=== PATIENT | female | born 1995 | race Caucasian/White ===

== ENCOUNTER 2018-08-29 13:35 | Inpatient (IN) ==
[2018-08-29] MEDS ORDERED: Sod Chloride 0.9% Inj 1,000 ML IV.SIG ONE (14:11)
[2018-08-29] MEDS ORDERED: Morphine Inj 4 MG/ML Vial IV.PUSH ONE (14:11)
--- NOTE | 2018-08-29 14:21 | ED ---
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 Patient was told by her PHARMACY TECH CUSTOMER SERVICE, Dr. Wetzel that she had a 10 cm ovarian cyst on the right side. Reports that she was at that time and was told that she would need surgery for her ovarian cysts 6 months after she delivered her baby. Patient reports that she delivered her baby in April and was going to follow- up in 6 months for her right-sided ovarian cysts but reports that over the past few days, she is been having severe right lower quadrant abdominal pain. Patient reports that she was seen at outside [facility] on August 27, 2018, at that time, she had a CT of her abdomen pelvis with IV contrast which showed a large ovarian cyst measuring approximately 10.1 cm in size. The appendix was normal. She also had a pelvic ultrasound which showed right ovarian enlargement especially with cysts with the largest cyst being 9.6 cm in size. There is no Doppler evidence of ovarian torsion found. Patient reports that she returned to the hospital on August 29 as she continued to have severe right lower quadrant abdominal pain. Patient then had another pelvic ultrasound which showed this 9.7 cm complex cyst in the right ovary. Patient was given a prescription for narcotic pain medications and was told to follow- up with her PHARMACY TECH CUSTOMER SERVICE. Reports that given the size of this ovarian cyst, she was told that she would need to be admitted to the hospital but for some reason was discharged. That same night, she went to [facility] for evaluation and she was just treated for pain control and was told to follow-up with her PHARMACY TECH CUSTOMER SERVICE. Patient reports that she is running out of her Percocets, reports severe right lower quadrant pain. Patient reports that at times, pain would be so severe, she would pass out from the pain. In addition to this, patient reports that she did not realize she did not have medical insurance and no one will see her or operate her unless she has garcia to pay upfront. MD complaint: Reports abdominal pain Onset (ago): day(s) Pain Consistency: constant Location: Reports RLQ Severity: severe Severity scale (1-10): 9 Quality: Reports stabbing and sharp Radiation: Reports RLQ Migration to: Reports no migration Relieving factors: nothing Exacerbating factors: nothing Associated symptoms: Reports denies other symptoms Related Data Previous Rx's Medication Instructions Recorded ibuprofen 600 mg PO QID #90 tab 08/27/18 Allergies Allergy/AdvReac Type Severity Reaction Status Date / Time No Known Allergies Allergy Verified 08/27/18 22:24 Review of Systems ROS: all other systems reviewed are negative [facility] Medical History Medical History Patient denies medical problems (Acute) Surgical History Surgical History No history of previous surgery (Acute) Social History Social History Substance History: No History of Abuse Smoking Status: Never smoker How Often Do You Have a Drink Containing Alcohol: Monthly or less Recent Travel in [facility] within the Last 8 Weeks: No Recent Out of Country Travel within the Last 8 Weeks: No Immunization History Tetanus Immunization: Never Vaccinated Exam Narrative Exam Narrative: GENERAL: Moderate distress, patient is uncomfortable SKIN: Focused skin assessment warm/dry. HEAD: Atraumatic. Normocephalic. EYES: Pupils equal and round. No scleral icterus. No injection or drainage. ENT: No nasal bleeding or discharge. Mucous membranes pink and moist. NECK: Trachea midline. No JVD. CARDIOVASCULAR: Regular rate and rhythm. No murmur appreciated. RESPIRATORY: No accessory muscle use. Clear to auscultation. Breath sounds equal bilaterally. GASTROINTESTINAL: Abdomen soft, tenderness to RLQ, nondistended. Hepatic and splenic margins not palpable. MUSCULOSKELETAL: No obvious deformities. No clubbing. No cyanosis. No edema. GENITOURINARY: Normal external genitalia without lesions or erythema. Vaginal vault with blood, no drainage. Cervical os was closed without drainage. No cervical motion tenderness. Uterus nontender and nonenlarged. Left adnexa nontender without masses. Right adnexa was tender and enlarged. NEUROLOGICAL: Awake and alert. No obvious cranial nerve deficits. Motor grossly within normal limits. Normal speech. PSYCHIATRIC: Appropriate mood and affect; insight and judgment normal. Course Initial Documented Vital Signs Temperature 98.3 F 08/29/18 13:45 Pulse Rate 66 08/29/18 13:45 Respiratory Rate 16 08/29/18 13:45 Blood Pressure 164/91 H 08/29/18 13:45 Pulse Oximetry 100 08/29/18 13:45 Last Documented Vital Signs Temperature 98.1 F 08/29/18 16:58 Pulse Rate 57 L 08/29/18 16:58 Respiratory Rate 17 08/29/18 16:58 Blood Pressure 123/77 08/29/18 16:58 Pulse Oximetry 100 08/29/18 16:58 Medical Decision Making MDM Narrative Medical decision making narrative: During the course of the patients emergency department visit, the patients history, examination, and differential diagnosis were reviewed with the patient. The patient was placed on a registered nurse cardiac telemetry with oximetry and frequent blood pressure monitoring. The patient had an IV access obtained and blood work sent for analysis. The patient was initially provided IVF as well as IV morphine for pain control Patient will require pelvic exam, a pelvic ultrasound was ordered to evaluate for possible ovarian torsion. Ultimately, plan to call the OB hospitalist as I am concerned that patient is having intermittent ovarian torsion due to the size of this ovarian cyst. A CT of the abdomen pelvis was then ordered as she just recently had a CT with IV and p.o. contrast to rule appendicitis, there is no evidence of appendicitis at that time, she presents with similar pain. Patient with a 10 cm right-sided ovarian cyst, I am concerned for intermittent ovarian torsion, call made to OB to review case. She has been at multiple hospitals for similar pain, I do think that patient will require admission to the hospital for further treatment of this ovarian cyst. Discussed clinical findings with Dr. Pacheco who states she will come to the ED to evaluate patient. Pt has been resting with her parents at bedside. Pain currently controlled. Dr. Pacheco evaluated patient. Pt will be admitted to her service. Plan is to go to the OR in the morning. Admit orders placed. Medical Screen Exam Complete: Yes Emergency Medical Condition: Yes Differential Diagnosis Differential Diagnosis: Ovarian cyst, ovarian torsion, appendicitis Lab Data Lab results reviewed: Yes I reviewed the patient's lab results. Result diagrams: 08/29/18 14:18 08/29/18 14:18 POC Results POC Urine Results Negative Lab Results 08/29/18 08/29/18 08/29/18 Range/Units 14:18 14:18 14:52 WBC 8.9 (4.0-11.0) th/mm3 RBC 3.65 L (4.00-5.30) mil/mm3 Hgb 10.1 L (11.6-15.3) gm/dL Hct 30.6 L (35.0-46.0) % MCV 83.9 (80.0-100.0) fL MCH 27.7 (27.0-34.0) pg MCHC 33.1 (32.0-36.0) % RDW 15.2 (11.6-17.2) % Plt Count 336 (150-450) th/mm3 MPV 7.3 (7.0-11.0) fL Neut % (Auto) 58.7 (16.0-70.0) % Lymph % (Auto) 34.6 (9.0-44.0) % Leake % (Auto) 5.5 (0.0-8.0) % Eos % (Auto) 0.7 (0.0-4.0) % Baso % (Auto) 0.5 (0.0-2.0) % Neut # (Auto) 5.2 (1.8-7.7) th/mm3 Lymph # (Auto) 3.1 (1.0-4.8) th/mm3 Leake # (Auto) 0.5 (0.0-0.9) th/mm3 Eos # (Auto) 0.1 (0.0-0.4) th/mm3 Baso # (Auto) 0.0 (0.0-0.2) th/mm3 WBC Differential . Differential Comment Auto diff final Sodium 141 (136-145) meq/L Potassium 3.4 L (3.5-5.1) meq/L Chloride 109 H (98-107) meq/L Carbon Dioxide 25.9 (21.0-32.0) meq/L Anion Gap 6 (5-15) meq/L BUN 15 (7-18) mg/dL Creatinine 0.99 (0.50-1.00) mg/dL Estimated GFR 68 L (>89) mL/min Random Glucose 120 H (74-106) mg/dL Calcium 8.2 L (8.5-10.1) mg/dL Total Bilirubin 0.4 (0.2-1.0) mg/dL AST 14 L (15-37) U/L ALT 33 (10-53) U/L Alkaline Phosphatase 73 (45-117) U/L Total Protein 7.2 (6.4-8.2) g/dL Albumin 3.7 (3.4-5.0) g/dL Urine Color Yellow (Yellw/Straw) Urine Clarity Hazy H (Clear) Urine pH 5.0 (5.0-8.5) Ur Specific [place] 1.030 (1.002-1.035) Urine Protein 30 H (Neg-Trace) mg/dL Urine Glucose (UA) Negative (Negative) mg/dL Urine Ketones Negative (Negative) mg/dL Urine Occult Blood Moderate H (Negative) Urine Nitrate Negative (Negative) Urine Bilirubin Negative (Negative) Urine Urobilinogen Less than 2 (Less than 2) mg/dL Ur Leukocyte Esterase Negative (Negative) Urine RBC 4 H (0-3) /hpf Urine WBC 2 (0-5) /hpf Ur Squamous Epith Cells 2 (0-5) /hpf Calcium Oxalate Crystal Occasional H (None) /hpf Urine Mucus Moderate H (Occasional) /lpf Micro UA Comment Culture not ind Ur Microscopic Review Not Reportable Urine Culture Comments Culture not ind Clue Cells (Wet Prep) (None Seen) Trichomonas (Wet Prep) (None Seen) Yeast (Wet Prep) (None Seen) Chlam trachomat DNA PCR (Not Detect) N.gonorrhoeae DNA (PCR) (Not Detect) 08/29/18 08/29/18 Range/Units 15:04 15:14 WBC (4.0-11.0) th/mm3 RBC (4.00-5.30) mil/mm3 Hgb (11.6-15.3) gm/dL Hct (35.0-46.0) % MCV (80.0-100.0) fL MCH (27.0-34.0) pg MCHC (32.0-36.0) % RDW (11.6-17.2) % Plt Count (150-450) th/mm3 MPV (7.0-11.0) fL Neut % (Auto) (16.0-70.0) % Lymph % (Auto) (9.0-44.0) % Leake % (Auto) (0.0-8.0) % Eos % (Auto) (0.0-4.0) % Baso % (Auto) (0.0-2.0) % Neut # (Auto) (1.8-7.7) th/mm3 Lymph # (Auto) (1.0-4.8) th/mm3 Leake # (Auto) (0.0-0.9) th/mm3 Eos # (Auto) (0.0-0.4) th/mm3 Baso # (Auto) (0.0-0.2) th/mm3 WBC Differential Differential Comment Sodium (136-145) meq/L Potassium (3.5-5.1) meq/L Chloride (98-107) meq/L Carbon Dioxide (21.0-32.0) meq/L Anion Gap (5-15) meq/L BUN (7-18) mg/dL Creatinine (0.50-1.00) mg/dL Estimated GFR (>89) mL/min Random Glucose (74-106) mg/dL Calcium (8.5-10.1) mg/dL Total Bilirubin (0.2-1.0) mg/dL AST (15-37) U/L ALT (10-53) U/L Alkaline Phosphatase (45-117) U/L Total Protein (6.4-8.2) g/dL Albumin (3.4-5.0) g/dL Urine Color (Yellw/Straw) Urine Clarity (Clear) Urine pH (5.0-8.5) Ur Specific [place] (1.002-1.035) Urine Protein (Neg-Trace) mg/dL Urine Glucose (UA) (Negative) mg/dL Urine Ketones (Negative) mg/dL Urine Occult Blood (Negative) Urine Nitrate (Negative) Urine Bilirubin (Negative) Urine Urobilinogen (Less than 2) mg/dL Ur Leukocyte Esterase (Negative) Urine RBC (0-3) /hpf Urine WBC (0-5) /hpf Ur Squamous Epith Cells (0-5) /hpf Calcium Oxalate Crystal (None) /hpf Urine Mucus (Occasional) /lpf Micro UA Comment Ur Microscopic Review Urine Culture Comments Clue Cells (Wet Prep) Present H (None Seen) Trichomonas (Wet Prep) None seen (None Seen) Yeast (Wet Prep) None seen (None Seen) Chlam trachomat DNA PCR Not detected (Not Detect) N.gonorrhoeae DNA (PCR) Not detected (Not Detect) Imaging Data Attestation: I personally reviewed and interpreted this imaging study as follows : Radiologist's impression: Pelvis Ultrasound 08/29/18 14:11 CONCLUSION: 1. 10 cm right ovarian cyst. 2. Otherwise negative. Discharge Plan Discharge Disposition Patient Disposition: ED Admit(ED Internal Use Only) Discharge Condition Condition: Stable Discharge Order Discharge Orders: ED Use Only Admit Order (Routine); Ordered 08/29/18 Ordered By: Danielle Narayan Discharge Details Diagnosis: BV (bacterial vaginosis), Ovarian cyst Physicians Team ED Provider: Otilia Baca ED Midlevel Provider: Danielle Narayan Primary Care Provider: Primary Care Hollyi,Steph Rxs /Orders / Referrals /Forms Prescriptions: No Action ibuprofen 600 mg tablet 600 mg PO QID Qty: 90 RF: 0 Status ED Status: Admitted Patient
[2018-08-29 14:28] LABS: Baso % (Auto) 0.5 % (0.0-2.0); Eos # (Auto) 0.1 th/mm3 (0.0-0.4); Eos % (Auto) 0.7 % (0.0-4.0); Hematocrit 30.6 % (35.0-46.0); Hemoglobin 10.1 gm/dL (11.6-15.3); Lymph # (Auto) 3.1 th/mm3 (1.0-4.8); Lymph % (Auto) 34.6 % (9.0-44.0); Mean Corpuscular HGB Conc 33.1 % (32.0-36.0); Mean Corpuscular Hemoglobin 27.7 pg (27.0-34.0); Mean Corpuscular Volume 83.9 fL (80.0-100.0); Mean Platelet Volume 7.3 fL (7.0-11.0); Mono # (Auto) 0.5 th/mm3 (0.0-0.9); Mono % (Auto) 5.5 % (0.0-8.0); Neut # (Auto) 5.2 th/mm3 (1.8-7.7); Neut % (Auto) 58.7 % (16.0-70.0); Platelet Count 336 th/mm3 (150-450); Red Blood Count 3.65 mil/mm3 (4.00-5.30); Red Cell Distribution Width 15.2 % (11.6-17.2); White Blood Count 8.9 th/mm3 (4.0-11.0)
[2018-08-29 14:48] LABS: Alanine Aminotransferase 33 U/L (10-53); Albumin 3.7 g/dL (3.4-5.0); Anion Gap 6 meq/L (5-15); Aspartate Aminotransferase 14 U/L (15-37); Blood Urea Nitrogen 15 mg/dL (7-18); Calcium 8.2 mg/dL (8.5-10.1); Carbon Dioxide 25.9 meq/L (21.0-32.0); Chloride 109 meq/L (98-107); Glomerular Filtration Rate 68 mL/min (>89); Glucose,Random 120 mg/dL (74-106); Potassium 3.4 meq/L (3.5-5.1); Sodium 141 meq/L (136-145)
[2018-08-29 14:50] LABS: Alkaline Phosphatase 73 U/L (45-117); Total Protein 7.2 g/dL (6.4-8.2)
[2018-08-29 15:33] LABS: Bilirubin,Urine Negative (Negative); Calcium Oxalate Crystals,Urine Occasional /hpf; Clarity,Urine Hazy (Clear); Color,Urine Yellow (Yellw/Straw); Glucose,Urine (UA) Negative (Negative); Leukocyte Esterase,Urine Negative (Negative); Mucus,Urine Moderate /lpf (Occasional); Nitrite,Urine Negative (Negative); Squamous Epithelial Cell,Urine 2 /hpf (0-5)
--- NOTE | 2018-08-29 15:49 | US ---
EXAM DATE: 08/29/2018 3:41 PM EST AGE/SEX: 23 years / Female INDICATIONS: Pelvic pain. CLINICAL DATA: This is the patient's initial encounter. Patient reports that signs and symptoms have been present for 1 week and indicates a pain score of 5/10. MEDICAL/SURGICAL HISTORY: . Pelvic pain. None. COMPARISON: No prior exams available for comparison. MEASUREMENTS: Uterus:__8.6 x 5.3 x 5.3 cm Endometrial Stripe:__5 mm Right Ovary:__ 10.1 x 8.8 x 6.9 cm Left Ovary:__ 2.8 x 1.9 x 1.9 cm FINDINGS: Uterus: The myometrium has homogeneous echotexture without mass. Endometrial Stripe: The endometrial stripe displays homogeneous echotexture. Right Ovary: 9.4 x 10.1 x 8.2 cm right ovarian cyst Left Ovary: Ovary contains no mass or significant cystic lesion. Fluid: No free fluid. Other: None CONCLUSION: 1. 10 cm right ovarian cyst. 2. Otherwise negative. Electronically signed by: Haresh Pickard MD Board Certified Radiologist 08/29/2018 3:48 PM EST
[2018-08-29] MEDS ORDERED: metroNIDAZOLE 500 MG Tablet PO ONE (18:37)
--- NOTE | 2018-08-29 18:50 | P.HPOB ---
History of Present Illness Reason for admission: pelvic pain, pelvic mass Planned procedure: other (right ovarian cystectomy for persistent 10cm cyst that is now causing acute pain) Narrative: Hina Rey is a 23 year old female Review of Systems All other systems reviewed negative except as stated in HPI PMFSH - History History Provided By: Patient - Medical History Medical History: Medical History (Last Reviewed 08/29/18 @ 14:19 by Otilia Baca) Patient denies medical problems - Surgical History Surgical History: Surgical History (Last Reviewed 08/29/18 @ 14:19 by Otilia Baca) No history of previous surgery - Tobacco History Smoking Status: Never smoker - Alcohol History How Often Do You Have a Drink Containing Alcohol: Monthly or less - Substance Use History Substance History: No History of Abuse - Travel History Recent Travel in the [place] Within the Last 8 Weeks: No Recent Travel Out of the Country Within the Last 8 Weeks: No - Immunization History Tetanus Immunization: Never Vaccinated Medications and Allergies Active Medications: Active Medications Sodium Chloride (Ns Flush) 2 ml IV.FLUSH PRN PRN PRN Reason: FLUSH AFTER USING IV ACCESS Allergies Allergy/AdvReac Type Severity Reaction Status Date / Time No Known Allergies Allergy Verified 08/27/18 22:24 Physical Exam Vital signs: Temp Pulse Resp BP Pulse Ox 98.1 F 57 L 17 123/77 100 08/29/18 16:58 08/29/18 16:58 08/29/18 16:58 08/29/18 16:58 08/29/18 16:58 Narrative: H & P dicatated Results - Labs CBC & Chem 7: 08/29/18 14:18 08/29/18 14:18 Labs: Short CBC 08/29/18 Range/Units 14:18 WBC 8.9 (4.0-11.0) th/mm3 Hgb 10.1 L (11.6-15.3) gm/dL Hct 30.6 L (35.0-46.0) % Plt Count 336 (150-450) th/mm3 BMP 08/29/18 14:18 Sodium 141 Potassium 3.4 L Chloride 109 H Carbon Dioxide 25.9 BUN 15 Creatinine 0.99 Calcium 8.2 L Liver Function 08/29/18 Range/Units 14:18 Total Bilirubin 0.4 (0.2-1.0) mg/dL AST 14 L (15-37) U/L ALT 33 (10-53) U/L Alkaline Phosphatase 73 (45-117) U/L Albumin 3.7 (3.4-5.0) g/dL Urine 08/29/18 Range/Units 14:52 Urine Color Yellow (Yellw/Straw) Urine Clarity Hazy H (Clear) Urine pH 5.0 (5.0-8.5) Ur Specific [place] 1.030 (1.002-1.035) Urine Protein 30 H (Neg-Trace) mg/dL Urine Glucose (UA) Negative (Negative) mg/dL - Imaging Impressions Pelvis Ultrasound 08/29/18 14:11 CONCLUSION: 1. 10 cm right ovarian cyst. 2. Otherwise negative. Assessment and Plan - Assessment (1) Acute pain in female pelvis Code(s): R10.2 - Pelvic and perineal pain Status: Acute (2) Ovarian cyst Code(s): N83.209 - Unspecified ovarian cyst, unspecified side Status: Acute Qualifiers: Laterality: right Qualified Code(s): N83.201 - Unspecified ovarian cyst, right side - Plan differential is right ovarian cyst vs paratubal cyst malignancy or abcess unlikely cyst is probably torsing intermittently Will perfrom Lscope in am and assess and remove cyst. risks and benefits reviewed with patient and parents in detail. Code Status: full code Discharge Planning: plan to discharge same day
--- NOTE | 2018-08-29 19:32 | MH ---
cc: Sara Pulido MD DATE OF ADMISSION: 08/29/2018 DATE OF PROCEDURE: 08/30/2018. SCHEDULED PROCEDURE: Diagnostic laparoscopy, right ovarian cystectomy, possible right oophorectomy with associated procedures. INDICATION: Acute pelvic pain secondary to a chronic 10 cm right ovarian cyst. HISTORY OF PRESENT CONDITION: The patient is a 23-year-old, single white female, 2, para 2, with LMP 2 days ago, who came to the emergency room after having been seen in [place] and at the [place] [facility] for pelvic pain. She said it started on Wednesday and was 10/10. She says it has been essentially 10/10 since Wednesday, for 72 hours. Right now with pain medicine, she says it is 6/10. She has no fever or chills. She did have an episode of nausea and vomiting, and her mom says that she passed out from the pain at home. She is moving her bowels and bladder. She has been eating intermittently. The last time she ate was 4 hours ago and she is hungry right now. She has had an ultrasound here which reveals a simple cyst on the right ovary of 10 cm. It did not appear to be torsed at the time of the ovarian ultrasound. It is simple without excrescences. There is no fluid in the cul-de-sac. The uterus and the other adnexa are unremarkable. PHYSICAL EXAMINATION: GENERAL: She is not in acute distress at this moment. VITAL SIGNS: She is afebrile and her vital signs are stable. She is neither hypertensive nor tachycardic. BACK: She has no CVA tenderness. ABDOMEN: She has good bowel sounds. No hepatosplenomegaly. No fluid wave. No palpable masses on exam. I am able to palpate the abdomen in all 4 quadrants without guarding, rebound or pain with percussion. PELVIC: At this point was deferred given the ultrasound. EXTREMITIES: Unremarkable. LUNGS: Clear. HEART: Regular. PAST MEDICAL HISTORY: She has no chronic or systemic illnesses. SOCIAL HISTORY: She does not smoke, drink or use illicit drugs. OBSTETRICAL HISTORY: Positive in that she has had 2 children, 4 months old and 2 years old, both vaginally. Her form of contraception right now is condoms and her beta hCG is negative. She denies any STDs. She apparently during her last was seen by Dr. Barajas at [place], who had sent her to Dr. Aj for what is believed to be the same persistent ovarian cyst on the right side to make sure it was not malignant. It was determined it was not malignant and watched during her . The plan had been to address it in the period, but that had not yet occurred. It was asymptomatic until Wednesday when she began having pain. LABORATORY DATA: Her white count is normal. She has a hemoglobin, I believe, of 11 or so. IMPRESSION: Right ovarian cyst, simple in nature, possibly a paratubal cyst, unlikely to be any type of malignancy or infection, probably torsing intermittently. This has been reviewed with Hina and her parents. I feel that it does need to be addressed and we have an OR time for 5:30 in the morning. She is hungry at this time and I do not mind giving her something to eat and then making her n.p.o. afterwards. She will get preoperative Ancef 2 grams. A Silver will be placed in the operating room. We will have her sign consents for a diagnostic laparoscopy, as discussed above, and we will proceed in the morning. MD LIBBY Hansen/aris , 06:45 PM , 06:55 PM
[2018-08-30] MEDS ORDERED: Metoprolol Tartrate 25 MG Tablet PO ONE (01:16)
[2018-08-30] MEDS ORDERED: Chlorhexidine Gluconate 2% 1 Pack (2 Cloths) TOPICAL ONE (01:16)
[2018-08-30] MEDS ORDERED: Sodium Chlor 0.9% Inj 500 ML IV.SIG SCH (02:00)
[2018-08-30] MEDS ORDERED: ceFAZolin 2 GM Premix Inj 2 GM/50 ML PIGGYBACK IV.SIG PRN (04:30)
[2018-08-30] MEDS ORDERED: Bupivacaine/Epinephrine Inj 0.25% 50 ML Vial ONE (05:57)
[2018-08-30] MEDS ORDERED: *Meperidine Inj 25 MG/ML Vial PERIprocedural Use ONLY ONE (06:55)
--- NOTE | 2018-08-30 06:57 | P.OP ---
- Preoperative Diagnosis (1) Ovarian cyst - Postoperative Diagnosis (1) Torsion of right ovary and ovarian pedicle Date of procedure: 08/30/18 Procedure: right ovarian cystectomy release of torsion Anesthesia: GETA Surgeon: Sara Pulido MD Estimated blood loss (mL): 25 IV fluids (mL): 1,000 Urine output (mL): 200 Pathology: other (cyst wall and 500cc fluid) Operation and Findings: dictated
[2018-08-30] MEDS ORDERED: fentaNYL Citrate Inj 100 MCG/2 ML Ampul ONE (06:59)
[2018-08-30] MEDS ORDERED: Ibuprofen 600 MG Tablet PO PRN (07:03)
--- NOTE | 2018-08-30 07:20 | MP ---
cc: Sara Pulido MD DATE OF OPERATION: 08/30/2018 PREOPERATIVE DIAGNOSIS: Torsion of large right ovarian cyst. POSTOPERATIVE DIAGNOSIS: Torsion of large right ovarian cyst. PROCEDURE PERFORMED: Laparoscopic ovarian cystectomy, release of ovarian torsion. ANESTHESIA: General. SURGEON: Sara Pulido MD. FINDINGS: Pelvic exam did not reveal the cyst as it was quite superior to the pelvis and compressible. Upon entering the peritoneal cavity, liver edge and gallbladder were normal. The ovarian cyst appeared to be 12-14 cm. There was torsion, but it had not yet caused necrosis of the ovarian tissue that was still separable from the ovarian cyst. The cyst was drained of 500 mL of clearish-green fluid and then the cyst wall dissected out and removed. The pedicle was assessed for viability. It was felt that both the ovarian pedicle and the ovary itself were fine and torsion was unraveled and left. Pelvic lavage was performed and then the instrumentation was removed. SPONGE, INSTRUMENT, AND NEEDLE COUNTS: Correct. ESTIMATED BLOOD LOSS: Less than 25 mL. DESCRIPTION OF PROCEDURE: The patient was identified as Hina Rey. Her permit was reviewed. She was taken to the OR and placed under general endotracheal anesthesia in the dorsal lithotomy position. A timeout was performed with all in attendance. She had received a couple grams of Ancef within an hour preop IV. Examination under anesthesia was performed. A Silver catheter was placed and a [employer] uterine manipulator was placed. A 5 mm incision was made in the umbilicus and the trocar and sleeve placed. Two liters of CO2 instilled. Then, the trocar and sleeve were used to place the scope and systematic evaluation of the abdominopelvic contents was performed. A right and left lower quadrant trocar and sleeve were placed in through these the instrumentation, which was graspers and monopolar scissors, were placed to evaluate the cyst. A needle was used to vega the ovary and drain it of 500 mL of fluid, some was sent for cytology. Then, the ovarian cyst wall was dissected out with the monopolar scissors. The area was hemostatic. There was no iatrogenic injury. The bowel and other structures were carefully evaluated. The cyst wall was pulled through 1 of the incisions and irrigation was performed. The edges of the cystectomy were hemostatic. All fluid was suctioned out. Incisions were closed with Monocryl. She was placed in dorsal supine position, awoken, and taken to the recovery room in stable condition. MD LIBBY Hansen/rs , 07:03 AM , 07:11 AM
[2018-08-30 08:43] VITALS: PULSE 60; RESP 16
[2018-08-30 09:52] VITALS: O2SAT 98
[2018-08-30 10:51] VITALS: BP 121/82; TEMP 97.7
== END 2018-08-30 12:03 | disposition home or self-care (01) ==
LOC: NEPD 13:35 → NEDA 18:40 → H1EA 21:25
PROVIDERS: ADMIT Obstetrics & Gynecology; ATTEND Obstetrics & Gynecology